=== PATIENT | male | born 2000 | race Caucasian/White ===

== ENCOUNTER 2023-11-13 14:09 | Emergency (ER) | payer OTHER ==
--- NOTE | 2023-11-13 15:19 | EDPHYS ---
Physician Documentation [facility] Name: Santy Lawrence Age: 23 yrs Sex: Male : 2000 Arrival Date: 11/13/2023 Time: 14:09 Bed 19 Private MD: ED Physician Tony Choe HPI: 11/12 14:50 This 23 yrs old Male presents to ER via Ambulatory with complaints of Ear Pain. rn 14:50 This 23 yrs old Male presents to ER via Ambulatory with complaints of decreased hearing.rn 14:50 The patient presents with a fullness, hearing loss. rn 14:51 Onset: The symptoms/episode began/occurred 2 day(s) ago. Modifying factors: The rn symptoms are alleviated by nothing, the symptoms are aggravated by nothing. Severity of symptoms: At their worst the symptoms were moderate in the emergency department the symptoms are unchanged. The patient has not experienced similar symptoms in the past. Patient reports fullness and decreased hearing out of right ear. Denies pain. Denies trauma. Patient reports has been trying irrigation and earwax treatments without much help. No fever. No drainage.. Historical: - Allergies: 14:25 "unsure"; nj1 - Immunization history:: Client reports having NOT received the Covid vaccine. - Infectious Disease History:: Denies. - Social history:: Smoking status: Patient denies any tobacco usage or history of. - Family history:: not pertinent. - Hospitalizations: : No recent hospitalization is reported. ROS: 14:51 Constitutional: Negative for fever, chills, and weight loss, ENT: Positive for right rn ear fullness with decreased hearing Exam: 15:17 Constitutional: This is a well developed, well nourished patient who is awake, alert, rn and in no acute distress. ENT: Bilateral cerumen impaction, no foreign body, no evidence of perforation, no erythema or bulging Vital Signs: 14:17 BP 136 / 65; Pulse 81; Resp 18; Temp 98.2(TE); Pulse Ox 99% on R/A; Weight 65.77 kg; nj1 Height 5 ft. 5 in. ; 15:37 BP 113 / 57; Pulse 80; Resp 14 S; Pulse Ox 100% on R/A; kc6 14:17 Body Mass Index 24.13 (65.77 kg, 165.1 cm) nj1 MDM: 14:16 Patient medically screened. rn 15:17 Differential diagnosis: cerumen impaction, barotrauma , serotympanum. Differential rn diagnosis: ruptured TM. Data reviewed: vital signs, nurses notes. Data reviewed: and as a result, I will discharge patient. Counseling: I had a detailed discussion with the patient and/or guardian regarding the historical points, exam findings, and any diagnostic results supporting the discharge/admit diagnosis, the need for outpatient follow up, to return to the emergency department if symptoms worsen or persist or if there are any questions or concerns that arise at home. Special discussion: I discussed with the patient/guardian in detail that at this point there is no indication for admission to the hospital. It is understood, however, that if the symptoms persist or worsen the patient needs to return immediately for re-evaluation. ED course: Patient feels much better after bilateral ear irrigation.. Administered Medications: No medications were administered Disposition Summary: 11/13/23 15:19 Discharge Ordered Notes: Location: Home rn Problem: new rn Symptoms: have improved rn Condition: Stable rn Diagnosis - Impacted cerumen, bilateral rn Followup: rn - With: Private Physician - When: As needed - Reason: Recheck today's complaints, Re-evaluation by your physician Discharge Instructions: - Discharge Summary Sheet rn - Earwax Buildup, Adult rn - Ear Irrigation rn Forms: - Medication Reconciliation Form rn - Antibiotic per diem rn - Prescription Opioid Use rn - Patient Portal Instructions rn - Leadership Thank You Letter rn Signatures: Tony Choe MD MD rn Jaco, Norma, RN RN nj1
--- NOTE | 2023-11-13 15:19 | ER ---
Nurse's Notes [facility] Name: Santy Lawrence Age: 23 yrs Sex: Male : 2000 Arrival Date: 11/13/2023 Time: 14:09 Bed 19 Private MD: Diagnosis: Impacted cerumen, bilateral Presentation: 11/12 14:17 Chief complaint: Patient states: "cannot hear at all", right ear. States he was nj1 cleaning ear 2 days ago, felt like ear was "blocked" went and bought some ear drops but it is not better. Denies pain as of right now. 14:17 Coronavirus screen: Vaccine status: Patient reports being unvaccinated. Ebola Screen: nj1 Patient denies travel to an Ebola-affected area in the 21 days before illness onset. Initial Sepsis Screen: Does the patient meet any 2 criteria? No. Patient's initial sepsis screen is negative. Does the patient have a suspected source of infection? No. Patient's initial sepsis screen is negative. Risk Assessment: Do you want to hurt yourself or someone else? Patient reports no desire to harm self or others. Onset of symptoms was November 11, 2023. 14:17 Method Of Arrival: Ambulatory banner 14:17 Acuity: LALITHA 4 nj1 Historical: - Allergies: 14:25 "unsure"; nj1 - Immunization history:: Client reports having NOT received the Covid vaccine. - Infectious Disease History:: Denies. - Social history:: Smoking status: Patient denies any tobacco usage or history of. - Family history:: not pertinent. - Hospitalizations: : No recent hospitalization is reported. Screenin:33 [facility] ED Fall Risk Assessment (Adult) History of falling in the last 3 months, kc6 including since admission No falls in past 3 months (0 pts) Confusion or Disorientation No (0 pts) Intoxicated or Sedated No (0 pts) Impaired Gait No (0 pts) Mobility Assist Device Used No (0 pt) Altered Elimination No (0 pt) Score/Fall Risk Level 0 - 2 = Low Risk. Abuse screen: Denies threats or abuse. Denies injuries from another. Nutritional screening: No deficits noted. Tuberculosis screening: No symptoms or risk factors identified. Assessment: 14:34 General: Appears in no apparent distress. comfortable, well groomed, well developed, kc6 Behavior is calm, cooperative, appropriate for age. Pain: Complains of pain in right ear. Neuro: Level of Consciousness is awake, alert, obeys commands, Oriented to person, place, time, situation, Appropriate for age. Cardiovascular: Capillary refill < 3 seconds. Respiratory: Airway is patent Trachea midline Respiratory effort is even, unlabored, Respiratory pattern is regular, symmetrical. GI: No signs and/or symptoms were reported involving the gastrointestinal system. : No signs and/or symptoms were reported regarding the genitourinary system. EENT: Reports decreased hearing in right ear pain in right ear. Derm: No signs and/or symptoms reported regarding the dermatologic system. Skin is intact, is healthy with good turgor, Skin is pink, warm \\T\\ dry. Musculoskeletal: No signs and/or symptoms reported regarding the musculoskeletal system. Circulation, motion, and sensation intact. Capillary refill < 3 seconds, Range of motion: intact in all extremities. 15:37 Reassessment: Patient appears in no apparent distress at this time. No changes from [facility] previously documented assessment. Patient and/or family updated on plan of care and expected duration. Pain level reassessed. Patient is alert, oriented x 3, equal unlabored respirations, skin warm/dry/pink. Vital Signs: 14:17 BP 136 / 65; Pulse 81; Resp 18; Temp 98.2(TE); Pulse Ox 99% on R/A; Weight 65.77 kg; nj1 Height 5 ft. 5 in. ; 15:37 BP 113 / 57; Pulse 80; Resp 14 S; Pulse Ox 100% on R/A; kc6 14:17 Body Mass Index 24.13 (65.77 kg, 165.1 cm) banner ED Course: 14:15 Patient arrived in ED. mg5 14:16 Tony Choe MD is Attending Physician. rn 14:21 Lani Davis RN is Primary Nurse. kc6 14:25 Triage completed. nj1 14:25 Arm band placed on. nj1 14:33 Patient has correct armband on for positive identification. Bed in low position. Call [facility] light in reach. Side rails up X 1. Client placed on continuous cardiac and pulse oximetry monitoring. NIBP monitoring applied. 14:33 Ear irrigation: Route right ear with Normal Saline amount 250ml Patient tolerated well. kc6 15:02 Ear irrigation: Route left ear with Normal Saline amount 250ml Patient tolerated well. kc6 15:38 No provider procedures requiring assistance completed. Patient did not have IV access kc6 during this emergency room visit. Administered Medications: No medications were administered Medication: 15:38 VIS not applicable for this client. kc6 Outcome: 15:19 Discharge ordered by . rn 15:38 Discharged to home ambulatory, kc6 15:38 Condition: good 15:38 Discharge instructions given to patient, Instructed on discharge instructions, follow up and referral plans. Demonstrated understanding of instructions, follow-up care, 15:39 Patient left the ED. kc6 Signatures: Tony Choe MD MD rn Campbell, Kaitlyn, RN RN kc6 Samara Bernard RN RN nj1 Alanna Lam 5
[2023-11-13 16:01] VITALS: BP 113/57; TEMP 98.2; O2SAT 100
== END 2023-11-13 15:39 | disposition home or self-care (01) ==
LOC: ER 14:09
DX: H61.23 Impacted cerumen, bilateral (principal)